=== PATIENT | male | born 2005 | race Two or more races ===

== ENCOUNTER 2024-02-18 18:35 | Emergency (ER) | payer MEDICAID ==
[~2024-02-18] VITALS: Ht 180.3 cm; Wt 50.7 kg
[~2024-02-18 18:35] MED LIST: ACET500T58 PO; BACDST PO; ZOFR4T PO
[2024-02-18 19:10] VITALS: BP 112/77; PULSE 91; RESP 18; TEMP 98.9; O2SAT 100
[2024-02-18] MEDS ORDERED: ACET-1304 PO (22:54)
== END 2024-02-18 23:22 | disposition home or self-care (01) ==
LOC: ER 18:35
DX: S05.12XA Contusion of eyeball and orbital tissues, left eye, initial encounter (principal); S09.90XA Unspecified injury of head, initial encounter; H11.32 Conjunctival hemorrhage, left eye; M25.512 Pain in left shoulder; W01.0XXA Fall on same level from slipping, tripping and stumbling without subsequent striking against object, initial encounter; Y93.89 Activity, other specified; Y92.89 Other specified places as the place of occurrence of the external cause; Y99.8 Other external cause status
CPT/HCPCS: 70450; 70486; 73030